=== PATIENT | male | born 1995 | race African-American/Black ===

== ENCOUNTER 2020-11-20 02:53 | Emergency (ER) | payer OTHER ==
[~2020-11-20] VITALS: Ht 190.5 cm; Wt 91.0 kg
[2020-11-20 03:15] VITALS: BP 138/73
[2020-11-20] MEDS ORDERED: TETANUS, DIPHTHERIA, PERTUSSIS VAC/PF 0.5ML (>7YR OLD) IM ONE (03:30)
[2020-11-20] MEDS ORDERED: BACITRACIN 15GM TUBE TOP ONE (03:30)
[2020-11-20] MEDS ORDERED: ACETAMINOPHEN WITH CODEINE 300/30MG TABLET PO ONE (03:30)
[2020-11-20] MEDS ORDERED: IBUP-2029 MT (03:37)
[2020-11-20] MEDS ORDERED: BO1 TP (03:37)
== END 2020-11-20 04:19 | disposition home or self-care (01) ==
LOC: ER 02:53
DX: T25.122A Burn of first degree of left foot, initial encounter (principal); T31.0 Burns involving less than 10% of body surface; X19.XXXA Contact with other heat and hot substances, initial encounter; Y93.89 Activity, other specified; Y92.832 Beach as the place of occurrence of the external cause; Y99.8 Other external cause status
CPT/HCPCS: 16020; 90471; 99283; A4217; Z7610

== ENCOUNTER 2021-04-20 13:44 | Emergency (ER) | payer MEDICAID, OTHER ==
[~2021-04-20] VITALS: Ht 190.5 cm; Wt 90.0 kg
[~2021-04-20 13:44] MED LIST: BO1 TP; IBUP-2029 MT
[2021-04-20 13:53] VITALS: BP 120/70
[2021-04-20] MEDS ORDERED: LIDOCAINE HCL/EPINEPHRINE 1%-EPI 1:100,000 20 ML VIAL INFIL ONE (14:45)
[2021-04-20] MEDS ORDERED: BACITRACIN ZINC OINT UDPKT TOP ONE (14:45)
== END 2021-04-20 17:28 | disposition home or self-care (01) ==
LOC: ER 13:44
DX: S61.210A Laceration without foreign body of right index finger without damage to nail, initial encounter (principal); W25.XXXA Contact with sharp glass, initial encounter; Y93.89 Activity, other specified; Y92.89 Other specified places as the place of occurrence of the external cause; Y99.8 Other external cause status
CPT/HCPCS: 12001; 99282; J3490; 99281

== ENCOUNTER 2021-04-30 18:04 | Emergency (ER) | payer OTHER ==
[~2021-04-30] VITALS: Ht 188 cm; Wt 91.0 kg
[2021-04-30 18:06] VITALS: BP 130/72
== END 2021-04-30 20:06 | disposition home or self-care (01) ==
LOC: ER 18:04
DX: S61.210D Laceration without foreign body of right index finger without damage to nail, subsequent encounter (principal); F17.200 Nicotine dependence, unspecified, uncomplicated; Z98.890 Other specified postprocedural states; Z79.899 Other long term (current) drug therapy; Z48.02 Encounter for removal of sutures; X58.XXXD Exposure to other specified factors, subsequent encounter
CPT/HCPCS: 99281